=== PATIENT | male | born 1960 | race Caucasian/White ===

== ENCOUNTER → 2024-07-08 09:00 | Outpatient (REF) | payer OTHER, SELFPAY ==
[2024-07-08 12:55] VITALS: BMI 42.3
[2024-07-08 13:48] LABS: % Basophils 0.4 % (0-2); % Immature Granulocytes 0.4 % (0-0.5); % Lymphocytes 19.5 % (20.5-51.1); % Monocytes 8.4 % (1.7-9.3); % Neutrophils 69.3 % (42.2-75.2); Absolute Eosinophils 0.2 10^3/uL (0-0.7); Absolute Lymphocytes 1.6 10^3/uL (1.2-3.4); Absolute Monocytes 0.7 10^3/uL (0.1-0.6); Absolute Neutrophils 5.6 10^3/uL (1.4-6.5); Hematocrit 43.8 % (39.0-52.0); Hemoglobin 15.2 g/dL (13.0-18.0); Mean Corp Hgb Conc. 34.7 g/dL (33.0-37.0); Mean Corpuscular Hgb 32.5 pg (27.0-31.0); Mean Corpuscular Volume 93.8 fL (80.0-94.0); Mean Platelet Volume 8.2 fL (7.4-10.4); Nucleated Red Blood Cells % 0 % (-); Platelet Count 206 10^3/uL (130-400); Red Blood Cell Count 4.67 10^6/uL (4.70-6.10)
[2024-07-08 14:02] LABS: INR 1.18; PT 15.3 Sec (11.4-14.6)
[2024-07-08 14:12] LABS: ALT (SGPT) 29 U/L (0-50); AST (SGOT) 28 U/L (17-59); Albumin 4.4 g/dl (3.5-5.0); Alkaline Phosphatase 66 U/L (38-126); Blood Urea Nitrogen 23 mg/dl (9-20); Calcium 9.3 mg/dl (8.4-10.2); Carbon Dioxide 21 mmol/L (22-30); Chloride 106 mmol/L (98-107); Estimated Creatinine Clearance 111 ml/min; Glucose 97 mg/dl (70-99); Magnesium 2.2 mg/dl (1.6-2.3); Potassium 4.1 mmol/L (3.5-5.1); Sodium 140 mmol/L (135-145); Total Bilirubin 0.8 mg/dl (0.2-1.3); Total Protein 7.3 g/dl (6.3-8.2); eGFR > 60.00
== END ==
LOC: SDSPAT 09:00
PROVIDERS: ATTENDING PHYSICIAN Internal Medicine Cardiovascular Disease; FAMILY PHYSICIAN Family Medicine; OTHER PHYSICIAN Internal Medicine Cardiovascular Disease
DX: I48.91 Unspecified atrial fibrillation (principal)
CPT/HCPCS: 36415; 75572; 80053; 83735; 85025; 85610; 86850; 86900; 86901; 93005; Q9967

== ENCOUNTER 2024-08-31 06:05 | Day surgery (SDC) | payer OTHER, SELFPAY ==
--- NOTE | 2024-08-22 07:38 | HPS.HSE ---
Family Physician
-
Family Physician: Robbin Nieves MD
Chief Complaint
-
Persistent atrial fibrillation.
History of Present Illness
The patient is a 63 year old morbidly obese, male presenting today for persistent atrial fibrillation. The patient reports significant fatigue, shortness of breath with exertion, and decreased exercise tolerance secondary to his
arrhythmia. He is on current pharmacological therapy with Metoprolol Succinate. He is compliant with Xarelto for oral anticoagulation due to a CHADS-VASc of 1. He notes that his current symptoms greatly interfere with his activities of daily living
and overall impact his quality of life. He is interested in pursuing pulmonary vein isolation for further arrhythmia management. He denies any current complaints today such as chest pain, shortness of breath at rest, palpitations, nausea, vomiting,
diarrhea, lightheadedness, dizziness, cough, sore throat, or fever.
Medical History
Past Medical History
Past Medical History: Reports Other
Additional Past Medical History:
1. Persistent atrial fibrillation, pharmacological therapy with Metoprolol Succinate and oral anticoagulation with Xarelto.
2. Hypertension.
3. Dyslipidemia.
4. Obstructive sleep apnea, compliant with CPAP.
5. Osteoarthritis, status post bilateral total knee arthroplasty 07/2022.
6. Morbid obesity, BMI 40.8.
Past Surgical History: Reports Other
Additional Past Surgical History:
1. Bilateral total knee arthroplasty.
2. Left toe mass excision.
3. Ventral hernia repair.
4. Varicocelectomy.
Social History
Tobacco: Non-smoker
Alcohol: Other (Social alcohol use reported. )
Personal:
Living: Other (He lives with his in a ranch style home. )
Family History
Family History: Not pertinent
Allergies / Home Medications
Allergy/Medication List:
Home medications:
1. Zyrtec 10 mg p.o. every evening.
2. Ibuprofen 600 mg p.o. twice a day.
3. Lisinopril 10 mg p.o. daily.
4. Metoprolol Succinate 50 mg p.o. twice a day.
5. Xarelto 20 mg p.o. every evening.
Allergies: Seasonal. No known drug allergies.
Review of Systems
-
A 12 point ROS was completed and negative except as noted: Yes
Physical Exam
Vital Signs
Blood pressure 116/80. Heart rate 76. Respirations 18. Pulse ox 98% on room air.
Height 5 feet, 7 inches. Weight 118.1 kg. BMI 40.8.
Physical Exam
General: Well Developed, Well Nourished and No Apparent Distress
HEENT: NormoCephalic, Moist mucous membranes, Atraumatic and PERRLA
Respiratory: Clear
Cardiac: Irregular Rhythm
GI: Soft, Non Tender, Non Distended and Other (Morbidly obese. )
Musculoskeletal: No Edema, Normal Gait & Station and Other (Small, superficial wound of left upper extremity, wrapped in sterile bandage. No drainage reported. )
Skin: Warm and Dry
Neuro: AO x 3 and Nonfocal/grossly intact
Laboratory Results
-
DIAGNOSTIC STUDIES as of 08/22/2024: White blood cell count 6.4. Hemoglobin 14.7. Platelet count 196,000. PT 19.1. INR 1.58. Sodium 139. Potassium 4.5. BUN 20. Creatinine 0.9. Glucose 114. Calcium 9.4. Magnesium 2.2. AST 27. ALT 24. Albumin 4.2.
Type and screen A positive.
EKG 08/22/2024: Atrial flutter with variable AV block and premature ventricular or aberrantly conducted complexes. When compared to the EKG of July 08, 2024, no significant change was found.
Chest CT 07/08/2024: Short segment common vestibule for the left superior and inferior pulmonary veins, fairly commonly seen and considered normal variant. No evidence for left atrial thrombus.
Impression/Plan
-
IMPRESSION/PLAN:
1. Persistent atrial fibrillation: The patient is in need of pulmonary vein isolation with Dr. Tacos Carlos on 08/31/2024. The benefits and risks of the procedure have been explained to the patient. The patient understands these risks and wishes to
proceed. He will not be required to undergo a pre-procedure transesophageal echocardiogram as he has been compliant with his home oral anticoagulation. He is aware to continue Xarelto uninterrupted prior to his procedure. He will take no medications
the morning of his procedure.
2. Superficial left upper extremity wound: His wound was assessed as non-concerning during his pre-operative exam. The patient was advised to continue cleaning his wound with soap and water and apply Neosporin ointment daily. He will cover it with
sterile bandages while working. The patient was advised that if he experiences redness, discharge, warmth, or fever associated with his incision to go to the ER for further treatment.
[2024-08-22 07:49] VITALS: BMI 40.8
[2024-08-22 08:31] LABS: % Basophils 0.5 % (0-2); % Eosinophils 4.5 % (0-6); % Immature Granulocytes 0.5 % (0-0.5); % Lymphocytes 17.4 % (20.5-51.1); % Monocytes 8.9 % (1.7-9.3); % Neutrophils 68.2 % (42.2-75.2); Absolute Eosinophils 0.3 10^3/uL (0-0.7); Absolute Lymphocytes 1.1 10^3/uL (1.2-3.4); Absolute Monocytes 0.6 10^3/uL (0.1-0.6); Absolute Neutrophils 4.4 10^3/uL (1.4-6.5); Hematocrit 42.7 % (39.0-52.0); Hemoglobin 14.7 g/dL (13.0-18.0); Mean Corp Hgb Conc. 34.4 g/dL (33.0-37.0); Mean Corpuscular Hgb 32.1 pg (27.0-31.0); Mean Corpuscular Volume 93.2 fL (80.0-94.0); Mean Platelet Volume 8.3 fL (7.4-10.4); Nucleated Red Blood Cells % 0 % (-); Platelet Count 196 10^3/uL (130-400); Red Blood Cell Count 4.58 10^6/uL (4.70-6.10); Red Cell Dist. Width 13.2 % (11.5-14.5); White Blood Cell Count 6.4 10^3/uL (4.8-10.8)
[2024-08-22 08:35] LABS: INR 1.58; PT 19.1 Sec (11.4-14.6)
[2024-08-22 09:09] LABS: ALT (SGPT) 24 U/L (0-50); AST (SGOT) 27 U/L (17-59); Albumin 4.2 g/dl (3.5-5.0); Alkaline Phosphatase 63 U/L (38-126); Blood Urea Nitrogen 20 mg/dl (9-20); Calcium 9.4 mg/dl (8.4-10.2); Carbon Dioxide 22 mmol/L (22-30); Chloride 104 mmol/L (98-107); Estimated Creatinine Clearance 103 ml/min; Glucose 114 mg/dl (70-99); Magnesium 2.2 mg/dl (1.6-2.3); Potassium 4.5 mmol/L (3.5-5.1); Sodium 139 mmol/L (135-145); Total Bilirubin 0.6 mg/dl (0.2-1.3); Total Protein 6.9 g/dl (6.3-8.2); eGFR > 60.00
[2024-08-31] VITALS (12 sets, daily range): BP systolic 91–142; BP diastolic 55–109
--- NOTE | 2024-08-31 08:16 | ITS.CL.ABL ---
[employer] Worker - Ablation
Ablation
Procedure Report:
Primary Van Loader: Vaughn Barrios MD
Procedure Date: 08/31/2024
Patient History:
Patient is a pleasant 64-year-old male with a past medical history significant for hypertension, sleep apnea, dyslipidemia, obesity, osteoarthritis, and persistent symptomatic atrial fibrillation.
See H&P for complete details.
Indication:
Symptomatic persistent atrial fibrillation
Arrhythmia Specific History:
Prior Medical Therapies for Rate and Rhythm Control:
X Beta-tracy
[ ] Calcium channel-tracy
[ ] Amiodarone
[ ] Dronederone
[ ] Sotalol
[ ] Flecainide
[ ] Dofetilide
[ ] Options limited by bradycardia
[ ] Options limited by comorbid renal disease
Prior Procedural Therapies for AF/AFL:
[ ] Cardioversion
[ ] Pulmonary Vein Isolation
[ ] Posterior Wall Isolation
[ ] Additional lines (Specify)
[ ] Surgical Kirkland-MAZE or PVI (Specify)
Procedure Performed:
X AF ablation procedure (84153) -- includes LA/CS pacing, trans-septal, 3D mapping, + ICE
[ ] +IV drug (19754)
X +Other Arrhythmia (54375) - Focal atrial tachycardia (RIPV), Typical Atrial Flutter (CTI RFA)
X +Other AF Line/ablation (80850) - posterior wall isolation (Floor, roof, wall)
Risks and expected recovery has been explained in detail. Alternative options have been explored, and in a shared-decision making fashion we have decided that this was the most appropriate procedure.
Method
NPO status confirmed. Grounding pad applied. Defibrillator pads applied. Continuous surface ECG, pulse oximetry, and blood pressure were monitored. Procedure was performed under general anesthesia, with anesthesia services.
Both groins were clipped, prepped with Chloraprep, and draped in sterile fashion. Time out was called. Local anesthesia administered with bupivacaine. The right femoral vein was accessed for catheter placement, using ultrasound guidance (stored in
record), micro-puncture needle/wire, and modified seldinger technique. 3 sheaths were placed. The following catheters were used:
X Tacticath SE (D/F Curve) ablation catheter
X Viewflex 9Fr ICE catheter
X Inquiry decapolar 6Fr diagnostic catheter
[ ] CRD Hex 6Fr
[ ] Arctic Front Advance Cryoballoon ([ ]28mm[ ]23mm)
[ ] Achieve Advance mapping catheter ([ ]15mm[ ]20mm)
X FlexCath Contour 10 Fr with PulseSelect PFA Catheter
X Advisor HD Grid Mapping Catheter, SE
[ ] Acuson AcuNav 8 Fr ICE catheter
[ ]Other: [ ]
Intracardiac ultrasound (ICE) was carefully advanced into the right atrium to guide sheath placement over a J-wire, catheter placement, guide trans-septal puncture, identify potential complications, identify anatomic structures and ensure proper
contact between ablation catheter and tissue.
The patient entered the room in atrial flutter with variable AVB. A multipolar catheter were advanced to the coronary sinus. A mapping / ablation catheter was used to record and pace. Tachycardia was characterized by activation patterns in the CS
catheters. Entrainment maneuvers established cavotricuspid isthmus-dependence. Counterclockwise Cavotricuspid Isthmus-dependent Right Atrial Flutter was present at study outset with a stable TCL of 230-240 ms. The surface morphology was negative in
the inferior leads and positive in V1; intracardiac EGM showed right to left activation in CS. Cycle length contained with in the RA on electroanatomic mapping and pacing from the isthmus resulted in entrainment (with concealment) with PPI=TCL.
These finding established the diagnosis of isthmus-dependent, counterclockwise atrial flutter. Utilizing electroanatomic three-dimensional navigation, a 3.5 mm tip Tacticath SE irrigated ablation catheter was advanced to the right atrium with the
assistance of the steerable long sheath. An electroanatomic three-dimensional map of the right atrium was constructed, with careful attention to anatomic landmarks, including the coronary sinus, IVC-RA and SVC-RA junction, tricuspid valve annulus,
and region of the His bundle electrogram. An ablation line was created from the tricuspid annulus to the IVC in the 6:00 position (SAMI clock). Power was titrated between 30 and 40 Linder. The patient�s atrial flutter terminated during ablation,
with resumption of NSR. The line was completed during CS pacing, and bidirectional block was achieved. The ablation line was mapped to ensure widely spaced double potentials.
Heparin was given prior to trans-septal puncture. Heparin was given to achieve and maintain a target ACT of 300-400 seconds throughout the procedure.
Trans-septal access was performed under ICE guidance. The trans-septal puncture was performed with a SafeSept wire through a Brockenbrough needle assembly through the steerable sheath. The wire was visualized as it entered the LSPV and system
advanced under ICE guidance and fluoroscopy into the LA. The Brockenbrough needle assembly, SafeSept wire and sheath dilator were removed under negative pressure. LA pressure was measured and recorded.
ICE and 3D mapping was performed to identify relevant cardiac structures. A careful 3D map was created to assess for regions of low-voltage and abnormal electrogram signals using HD grid mapping catheter and PulseSelect catheter. Additional mapping
was performed as outlined below.
Prior to ablation, glycopyrrolate was provided. PulseSelect catheter was advanced over J-wire to the ostium of each vein. Pulmonary vein isolation was performed with ostial and antral lesions in a circumferential manner. Contact was visualized via
EAM, ICE, fluoroscopy, and EGM signals. During pulmonary left vein isolation, patient rhythm changed to 2:1 AT vs flutter with a TCL of 400 ms which was concentrically activated. CS pacing showed PPI-TCL >60 -100 ms from prox and distal entrainment
maneuvers. The tachycardia would spontaneous terminate and resume with overdrive atrial pacing. CS 7-8 had earliest manifest entrainment with PPI-TCL 50 ms. Single ablation lesion performed at RIPV terminated the AT which did not return. PVI for
left and right veins continued. Posterior wall isolation was performed by anchoring the J-wire within the pulmonary vein and placing the PulseSelect catheter in contact with the posterior wall as visualized by aforementioned methods. Following
completion of ablation lesions, a post-ablation voltage/activation map was performed in sinus rhythm. Entrance and exit block were confirmed for each vein and the posterior wall.
Catheter and sheath were removed from the left atrium and post-ablation intracardiac echo evaluation was consistent with pre-ablation with no changes and no pericardial effusion and there is no left atrial thrombus or left ventricle thrombus seen.
Electrophysiology study was performed. Clockwise and counterclockwise trans-isthmus times were determined, and RA activation patterns confirmed bidirectional block which persisted. Interval measurements in NSR were made. No inducible arrhythmias
noted at case completion. Hemostasis was obtained with figure of 8 stitch for each groin and with manual pressure. Protamine was used for reversal.
Estimated Blood Loss
5 mL
Complications
None
Fluoroscopy: 5.2 minutes; 50.91 mGy; DAP 5.25
LAP: 17
Baseline Intervals:
Rhythm: Atrial Flutter
TCL 230-240 ms
Post-Procedure Intervals:
MN: 130 ms
QRS: 82 ms
QT: 430 ms
QTc: 443 ms
A-A: 944 ms
R-R: 944 ms
AVWB: 330 ms
AVNERP: 600/260 ms
Recommendations
- Bedrest with straight-leg precautions as ordered
- Anticipate same day discharge if patient meeting clinical metrics
- Resume home medications as indicated
- Ok to resume anticoagulation tonight if patient and groin sites stable
- PPI daily for 30 days
- Plan for follow-up in office as scheduled
Tacos Carlos, DO, FACC
Clinical Cardiac Environmental Services Director
cc: Dr Robbin Nieves, Dr Vaughn Barrios
[2024-08-31 09:10] LABS: ACT-LR - POC 250 Seconds (116-155)
[2024-08-31 09:30] LABS: ACT-LR - POC 224 Seconds (116-155)
[2024-08-31 09:45] LABS: ACT-LR - POC 245 Seconds (116-155)
[2024-08-31 10:09] LABS: ACT-LR - POC 326 Seconds (116-155)
[2024-08-31 10:22] LABS: ACT-LR - POC 335 Seconds (116-155)
[2024-08-31 10:48] LABS: ACT-LR - POC 356 Seconds (116-155)
[2024-08-31 11:23] LABS: ACT-LR - POC 237 Seconds (116-155)
[2024-08-31] MEDS: TOPROL XL 50 MG PO (13:09)
--- NOTE | 2024-08-31 16:13 | W.PN.UPDATE ---
Update Note
Progress Note Update
Pt seen post PFA. Right groin site with small ooze earlier, managed with manual compression, now without ht/bleeding, non tender. OOB ambulating, urinating without difficulty. Post EKG NSR/low ST 90-100s with PVCs. Given one dose metoprolol earlier
with some lowering of heart rate, will take evening dose tonight at usual time. Continue other meds as before. Protonix for 30 days post procedure. Followup at [facility] as scheduled and Dr. Barrios thereafter. Home today if groin site/tele remain stable.
== END 2024-08-31 16:47 | disposition home or self-care (01) ==
LOC: CATH 06:05
PROVIDERS: ATTENDING PHYSICIAN Internal Medicine Cardiovascular Disease; FAMILY PHYSICIAN Family Medicine
DX: I48.19 Other persistent atrial fibrillation (principal); I48.92 Unspecified atrial flutter; I47.19 Other supraventricular tachycardia; E66.01 Morbid (severe) obesity due to excess calories; E78.5 Hyperlipidemia, unspecified; G47.33 Obstructive sleep apnea (adult) (pediatric); I10 Essential (primary) hypertension; M19.90 Unspecified osteoarthritis, unspecified site; Z68.41 Body mass index [BMI] 40.0-44.9, adult; R06.02 Shortness of breath; Z79.899 Other long term (current) drug therapy; Z79.01 Long term (current) use of anticoagulants; I34.0 Nonrheumatic mitral (valve) insufficiency; I49.3 Ventricular premature depolarization; Z96.653 Presence of artificial knee joint, bilateral
CPT/HCPCS: 93655; C1733; C1732; C1894; C2630; C1759; 36415; 76937; 80053; 83735; 85025; 85347; 85610; 86850; 86900; 86901; 92928; 93005; 93312; 93320; 93325; 93656; 93657; C1766; C1769